=== PATIENT | male | born 1935 | race Caucasian/White ===

== ENCOUNTER → 2016-10-30 | Outpatient (CLI) | payer MEDICARE ==
[2016-02-07 08:11] VITALS: BP 160/87
[~2016-10-30] MED LIST: ACET500T33 PO; ASPI81TA2 PO; CALC-77 PO; CLON1PAT2 TD; DUTA1CPM PO; GLUC1TAB71 PO; METO50TA10 PO; MULT-658 PO; OMEG500C PO; POLY119P4 PO; PROP1DRO OP; SIMV40TA3 PO; TAMS0.4C97 PO; UBID100C12 PO; VALS1TAB18 PO
--- NOTE | 2016-10-30 15:58 | RAD ---
EXAM: Chest CT without intravenous contrast. HISTORY: Infiltrate follow-up. TECHNIQUE: Computed tomographic images of the chest were obtained without contrast. Multiplanar reformatting was performed. COMPARISON: Abdomen CT dated 09/25/2016. FINDINGS: There has been slight interval decrease in nodular and groundglass opacities within the right middle lobe, favoring resolving infiltrate. There is a 3 mm nodule within the right middle lobe which is excluded from the [id number] on the prior study. There is also groundglass and nodular opacity within the posterior superior segment of the left lower lobe which is excluded from the [id number]-ri-[id number] on the prior study. There is no effusion or pneumothorax. The heart is normal in size. There is aortic and coronary artery atherosclerosis. There is a suspected 2.0 cm sebaceous cyst within the left axilla. There are few calcified granulomas. No pathologically enlarged lymph node is seen. There is colonic diverticulosis. There is left renal atrophy. There are nonobstructing renal stones. There is a 1.8 cm hypodense lesion within the right kidney. There are degenerative changes throughout the thoracic spine and upper lumbar spine. There is increased thoracic kyphosis. No suspicious osseous lesion is seen. IMPRESSION: 1. Slight interval decrease in groundglass and nodular opacities within the right middle lobe. The interval change favors a resolving infiltrate, possibly of an atypical infectious etiology. There is similar-appearing nodular and groundglass opacity within the left lower lobe which is excluded from the vphvd-in-grsy on the prior study and may also be infectious. Continued follow-up is recommended to confirm complete resolution and exclude underlying neoplasm. 2. 3 mm nodule within the right upper lobe, excluded from the oawke-ew-kwen on the prior study. Attention at the time of follow-up is recommended. 3. Colonic diverticulosis. 4. Nephrolithiasis. 5. Stable suspected cyst within the right kidney and left renal atrophy. PQRS Compliance Statement: One or more of the following individualized dose reduction techniques were utilized for this examination: 1. Automated exposure control 2. Adjustment of the mA and/or kV according to patient size 3. Use of iterative reconstruction technique
== END | disposition home or self-care (01) ==
LOC: CT 13:20
PROVIDERS: ATTEND Internal Medicine Pulmonary Disease
DX: R91.8 Other nonspecific abnormal finding of lung field (principal); K57.30 Diverticulosis of large intestine without perforation or abscess without bleeding; N20.0 Calculus of kidney; N26.1 Atrophy of kidney (terminal); I25.10 Atherosclerotic heart disease of native coronary artery without angina pectoris
CPT/HCPCS: 71250

== ENCOUNTER → 2017-02-08 | Outpatient (CLI) | payer MEDICARE ==
[2016-02-07 08:11] VITALS: BP 160/87
[~2017-02-08] MED LIST changes: +ASPI-630 PO; -ASPI81TA2 PO; -UBID100C12 PO; +UBID100C40 PO
--- NOTE | 2017-02-08 14:25 | RAD ---
Indication pulmonary infiltrates. Noncontrast imaging through the chest was performed. Note is made of a previous CT examination 10/30/2016. Imaging through the upper abdomen shows no acute finding. The left kidney is somewhat small and there is a left renal calculus. These findings are similar to the previous exam. The mediastinum appears unremarkable. There is no significant hilar or mediastinal adenopathy. Coronary artery calcification is noted. There is no dominant soft tissue mass in either lung. Previously identified groundglass opacity in the left upper lobe has completely cleared. Reticulonodular opacity in the right middle lobe persists to a degree however the infiltrative process in the right middle lobe has clearly improved. The constellation of findings is most compatible with clearing of inflammatory foci seen previously. A new finding in the chest is not seen.. IMPRESSION: Previously seen groundglass opacity in the left lower lobe has completely cleared. Some reticulonodular prominence and volume loss persists in the right middle lobe but this process to has improved. The findings are most compatible with partial clearing of an inflammatory process No new finding seen in the chest PQRS Compliance Statement: One or more of the following individualized dose reduction techniques were utilized for this examination: 1. Automated exposure control 2. Adjustment of the mA and/or kV according to patient size 3. Use of iterative reconstruction technique
== END | disposition home or self-care (01) ==
LOC: CT 13:18
PROVIDERS: ATTEND Internal Medicine Pulmonary Disease
DX: R91.8 Other nonspecific abnormal finding of lung field (principal)
CPT/HCPCS: 71250

== ENCOUNTER 2017-08-26 14:50 | Emergency (ER) | payer MEDICARE ==
[~2017-08-26] VITALS: Ht 182.9 cm; Wt 75.7 kg
[~2017-08-26 14:50] MED LIST changes: -METO50TA10 PO; +METO50TA29 PO; -PROP1DRO OP; +PROP1DRO6 OP
[2017-08-26] MEDS ORDERED: TETANUS AND DIPHTHERIA TOX/PF 0.5 ML VIAL. VAX IM ONE (15:45)
--- NOTE | 2017-08-26 15:57 | RAD ---
Left RIBS with chest, 3 views, 08/26/2017: History: Fall No left rib fractures identified. There is a moderate size left pneumothorax estimated at approximately 25% in volume. No pulmonary infiltrate is seen. Scattered spurs are present in the spine. IMPRESSION: 1. Moderate size left pneumothorax. 2. No rib fracture is identified. Note: The findings were called to personnel in the [facility] ER at 3:54 PM on 08/26/2017.
--- NOTE | 2017-08-26 15:57 | RAD ---
CT of the head without contrast, 08/26/2017: History: Fall, injury, head and neck pain There is moderate cerebral atrophy. The ventricles are within normal limits in size. There is no shift of the midline structures. There is no evidence of acute intracranial hemorrhage or mass effect. IMPRESSION: 1. Cerebral atrophy. 2. No acute intracranial abnormality is detected. CT of the cervical spine without contrast, 08/26/2017: Noncontrast scans were obtained with multiplanar reconstructions produced. There is disc space narrowing and moderate marginal spurring at multiple levels throughout the cervical spine. There is is extensive hypertrophic degenerative change involving multiple facet joints bilaterally. The combination of findings is causing moderate foraminal narrowing bilaterally at multiple levels as well as mild central spinal stenosis at C5-6. No acute fracture or dislocation is identified. There is moderate calcific plaquing at both carotid bifurcations. There is a lucency in the left apex visualized on the lower slices compatible with a pneumothorax. IMPRESSION: 1. Moderately severe multilevel degenerative change. 2. No acute bony abnormality detected. 3. Left apical pneumothorax. PQRS Compliance Statement: One or more of the following individualized dose reduction techniques were utilized for this examination: 1. Automated exposure control 2. Adjustment of the mA and/or kV according to patient size 3. Use of iterative reconstruction technique
--- NOTE | 2017-08-26 16:00 | RAD ---
Three-view thoracic spine 08/26/2017 Clinical indication: Fall with back pain. Comparison: CT chest 02/08/2017. Findings: Right convexity thoracic scoliosis. There is multilevel thoracic spondylosis with osteophytic spurring and anterior flowing osteophytes compatible with DISH. The cervicothoracic junction is limited due to overlying soft tissues. Impression: 1. No radiographic evidence of acute thoracic abnormality. 2. Multilevel thoracic spondylosis and right convexity thoracic scoliosis.
--- NOTE | 2017-08-26 16:00 | RAD ---
Lumbar spine, 3 views, 08/26/2017: History: Fall, pain The lumbar vertebral heights are well-maintained. There are extensive scattered marginal spurs. There is moderate disc space narrowing at L5-S1. There are extensive degenerative changes involving the facet joints bilaterally. A minimal anterolisthesis at L4-5 appears to be due to facet joint arthropathy. No acute fracture is identified. Aortoiliac calcific plaquing is present. IMPRESSION: 1. Moderately severe multilevel degenerative change. 2. Minimal anterolisthesis at L4-5 due to facet joint arthropathy. 3. No acute bony abnormality is detected.
--- NOTE | 2017-08-26 16:15 | PHYS DOC ---
Past History Past Medical History: Depression, High Cholesterol, Hypertension, AL Past Surgical History: Other Alcohol Use: None Drug Use: None Adult General Chief Complaint Chief Complaint: BACK PAIN OR INJURY HPI HPI 81-year-old male patient with history of hypertension, dyslipidemia, coronary artery disease states he had an accidental fall from a standing position at 1315 while he was at a meeting at the [employer] and landed on his back without loss of consciousness. Patient complaining of pain in left thoracic back without other injuries. Patient states he was able to go to his eye appointment but because of increasing pain with movement and walking decided to come to ER. Patient denies chest pain, shortness of breath, nausea and vomiting, focal neuro deficit. Last tetanus immunization is unknown. Review of Systems Review of Systems Constitutional: Denies fever or chills [] Eyes: Denies change in visual acuity, redness, or eye pain [] HENT: Denies nasal congestion or sore throat [] Respiratory: Denies cough or shortness of breath [] Cardiovascular: No additional information not addressed in HPI [] GI: Denies abdominal pain, nausea, vomiting, bloody stools or diarrhea [] : Denies dysuria or hematuria [] Musculoskeletal: Denies joint pain, reports back pain [] Integument: Denies rash or skin lesions [] Neurologic: Denies headache, focal weakness or sensory changes [] Endocrine: Denies polyuria or polydipsia [] All other systems were reviewed and found to be within normal limits, except as documented in this note. Current Medications Current Medications Current Medications Medications (Trade) Dose Ordered Sig/Rita Start Time Stop Time Status Last Admin Dose Admin Tetanus/ Diphtheria Toxoids Adsorbed (Tenivac Vial) 0.5 ml ONCE ONCE 08/26/17 15:45 08/26/17 15:46 DC Allergies Allergies Allergies Coded Allergies Type Severity Reaction Last Updated Verified enalaprilat Allergy Unknown 11/30/13 Yes Physical Exam Physical Exam Constitutional: Well developed, well nourished, mild distress, non-toxic appearance. [] HENT: Normocephalic, atraumatic, bilateral external ears normal, oropharynx moist, no oral exudates, nose normal. [] Eyes: PERRLA, EOMI, conjunctiva normal, no discharge. [] Neck: Normal range of motion, no tenderness, supple, no stridor. [] Cardiovascular:Heart rate regular rhythm, no murmur [] Lungs & Thorax: Bilateral breath sounds clear to auscultation . No subcutaneous emphysema or crepitation, left lower posterior chest wall mild tenderness Abdomen: Bowel sounds normal, soft, no tenderness, no masses, no pulsatile masses. [] Skin: Warm, dry, no erythema, no rash. [] Back: No tenderness, no CVA tenderness. [] Extremities: No tenderness, no cyanosis, no clubbing, ROM intact, no edema, abrasion right elbow, right thenar contusion, abrasion in left forearm, bilateral elbow contusion. [] Neurologic: Alert and oriented X 3, normal motor function, normal sensory function, no focal deficits noted. [] Psychologic: Affect normal, judgement normal, mood normal. [] Current Patient Data Vital Signs Vital Signs Date Time Temp Pulse Resp B/P (MAP) Pulse Ox O2 Delivery O2 Flow Rate FiO2 08/26/17 15:19 97.8 78 18 98 Room Air EKG EKG [] Radiology/Procedures Radiology/Procedures Chest x-ray showed left moderate pneumothorax without hemothorax] CT head and C-spine was unremarkable Course & Med Decision Making Course & Med Decision Making Pertinent Labs and Imaging studies reviewed. (See chart for details) Evaluation of patient in ER showed 81-year-old male patient with a fall and injury to left posterior your chest wall. Patient had moderate pneumothorax without respiratory distress or hypoxia. Dr. Zoltan Leyva on-call surgeon at [facility] was contacted at 1620 and he recommended to insert a chest tube and transfer patient to [facility]. Dr. Ashley accepted the transfer to [facility] at 1635.Cook chest tube was placed with good expansion of lung. Dragon Disclaimer Dragon Disclaimer This electronic medical record was generated, in whole or in part, using a voice recognition dictation system. Departure Departure: Impression: Primary Impression: Traumatic pneumothorax Additional Impression: Fall Disposition: 02 XFER [facility] (At 1636) Condition: IMPROVED Referrals: SENDY GONZALEZ MD (PCP) Chest Tube Chest Tube Indication: [Left traumatic pneumothorax Consent: [Consent obtained from patient] Pre-Medication: [50 g fentanyl IV was given Procedure: The patient was placed in a semirecumbent position with the head of the bed at 30 degrees. [SIDE]. Local anesthesia over the insertion site was [with 1% lidocaine]. An incision was made [in left fifth intercostal space] . A 8 [place] Cook catheter was placed with keeping the valve open to the air with good one way air movement. The tube was sutured in place and the site was covered with a dressing. All connections were banded. Breath sounds after the procedure were [bilaterally equal]. A chest x-ray was obtained to evaluate placement [X-RAY]. The patient tolerated the procedure well Complications: [none Problem Qualifiers SKIP HAYES MD Aug 26, 2017 16:14
[2017-08-26 16:40] VITALS: BP 150/90
[2017-08-26 16:50] LABS: BASO % 0 % (0-3); EOS % 0 % (0-3); HEMATOCRIT 43.3 % (39.0-53.0); HEMOGLOBIN 14.8 g/dL (13.0-17.5); LYMPH % 10 % (24-48); MEAN CORPUSCULAR HEMOGLOBIN 31 pg (25-35); MEAN CORPUSCULAR HGB CONC 34 g/dL (31-37); MEAN CORPUSCULAR VOLUME 92 fL (79-100); MONO # 0.7 x10^3/uL (0.0-1.1); MONO % 7 % (0-9); NEUT # 8.8 x10^3uL (1.8-7.7); NEUT % 83 % (31-73); PLATELET COUNT 156 x10^3/uL (140-400); RED BLOOD COUNT 4.71 x10^6/uL (4.30-5.70); RED CELL DISTRIBUTION WIDTH 12.8 % (11.5-14.5); WHITE BLOOD COUNT 10.6 x10^3/uL (4.0-11.0)
[2017-08-26 17:02] LABS: ALBUMIN 4.1 g/dL (3.4-5.0); ALBUMIN/GLOBULIN RATIO 1.2 (1.0-1.7); CALCIUM 9.2 mg/dL (8.5-10.1); CREATININE 1.2 mg/dL (0.7-1.3); GFR 58.1; POTASSIUM 3.9 mmol/L (3.5-5.1); TOTAL BILIRUBIN 0.6 mg/dL (0.2-1.0); TOTAL PROTEIN 7.4 g/dL (6.4-8.2)
--- NOTE | 2017-08-27 09:04 | RAD ---
Portable chest, 08/26/2017, 5:20 PM: History: Check chest tube placement Comparison is made to a study of earlier in the day. A small caliber left pleural drain has been placed the left-sided pneumothorax has diminished in size. There appears to be a small residual inferolateral component. No pleural fluid or pulmonary infiltrate is seen. The heart size is normal. IMPRESSION: Reduction in size of the left pneumothorax status post left pleural drain placement.
== END 2017-08-26 17:38 | disposition short-term general hospital (02) ==
LOC: ER 14:50
DX: S27.0XXA Traumatic pneumothorax, initial encounter (principal); E78.00 Pure hypercholesterolemia, unspecified; I10 Essential (primary) hypertension; I25.10 Atherosclerotic heart disease of native coronary artery without angina pectoris; I25.2 Old myocardial infarction; Z88.8 Allergy status to other drugs, medicaments and biological substances; W19.XXXA Unspecified fall, initial encounter; Y93.89 Activity, other specified; Y99.8 Other external cause status; Y92.22 Religious institution as the place of occurrence of the external cause
CPT/HCPCS: 32551; 36415; 70450; 71045; 71101; 72072; 72100; 72125; 80053; 85025; 85610; 90471; 90714; 96372; 99285; J3010

== ENCOUNTER → 2018-01-17 | Outpatient (CLI) | payer MEDICARE ==
[~2018-01-17] MED LIST changes: +IOHEXOL 240 MG/ML 50ML VIAL. ONE; +IOHEXOL 300 MG/ML 75 ML VIAL. IV ONE
[2018-01-17 10:01] LABS: GFR 71.5
--- NOTE | 2018-01-17 13:06 | RAD ---
CT of the abdomen and pelvis without contrast, 01/17/2018: HISTORY: Weight loss No IV contrast scans was utilized in this patient with known kidney disease. There are mild opacities in the medial aspect of the right middle lobe compatible with atelectasis, mild infiltrate and/or scarring, slightly worse than on CT chest images from 02/08/2017. The unopacified liver is unremarkable. No gallbladder abnormality is seen. The pancreas is unremarkable. The spleen is of normal size. The left kidney is mildly atrophic and scarred with several small nonobstructing intrarenal calculi. There is a small cyst in the lateral aspect of the right kidney. Several small right intrarenal calculi are also seen without evidence of obstruction. There is moderate aortoiliac calcific plaquing without evidence of aneurysm. No abdominal or pelvic adenopathy is seen. The prostate gland is enlarged measuring 5.2 cm in width. Colonic diverticulosis is present, most extensive in the sigmoid and descending colon. No paracolonic inflammatory process is seen. The small bowel loops are not dilated. There appears to be a trace amount of free fluid in the pelvis. No free air is evident in the abdomen or pelvis. Moderate multilevel degenerative change is present in the spine. IMPRESSION: 1. Atrophic left kidney. 2. Bilateral nonobstructing intrarenal calculi. 3. Mild nonspecific prostatic enlargement. 4. Moderate colonic diverticulosis. 5. Trace amount of free fluid in the pelvis. 6. Mild right middle lobe atelectasis/infiltrate has worsened slightly since 02/08/2017. Electronically signed by: Eduardo Heath MD (01/17/2018 1:03 PM) [facility]
== END | disposition home or self-care (01) ==
LOC: CT 09:05
PROVIDERS: ATTEND Internal Medicine Gastroenterology
DX: N26.1 Atrophy of kidney (terminal) (principal); N20.0 Calculus of kidney; N40.0 Benign prostatic hyperplasia without lower urinary tract symptoms; K57.30 Diverticulosis of large intestine without perforation or abscess without bleeding
CPT/HCPCS: 36415; 74176; 82565; 84520; Q9966

== ENCOUNTER → 2018-01-31 | Outpatient (CLI) | payer MEDICARE ==
[~2018-01-31] MED LIST changes: -IOHEXOL 240 MG/ML 50ML VIAL. ONE; -IOHEXOL 300 MG/ML 75 ML VIAL. IV ONE
--- NOTE | 2018-01-31 17:01 | RAD ---
CHEST PA LATERAL Clinical indications: INFILTRATES, WEIGHT LOSS COMPARISON: August 26, 2017. Findings: No acute lung infiltrate or pleural effusion or pulmonary edema or lung mass or pneumothorax is seen. The heart size, pulmonary vasculature, mediastinum and both joel are unremarkable. The osseous structures appear intact. Impression: No acute radiographic abnormality is seen. Electronically signed by: Lasha Markham MD (01/31/2018 4:58 PM) [id number]
== END | disposition home or self-care (01) ==
LOC: DXRAD 12:24
PROVIDERS: ATTEND Internal Medicine Gastroenterology
DX: R91.8 Other nonspecific abnormal finding of lung field (principal); R63.4 Abnormal weight loss; I10 Essential (primary) hypertension; E78.00 Pure hypercholesterolemia, unspecified; I25.2 Old myocardial infarction
CPT/HCPCS: 71046